=== PATIENT | male | born 1960 | race Caucasian/White ===

== ENCOUNTER → 2021-08-07 | Outpatient (CLI) | payer MEDICAID ==
[~2021-08-07] MED LIST: CARBIDOPA-LEVO1 EAC5; HYDROCODON-ACE1 EAC8; INVOKANA100 MG; LISINOPRIL-HCT1 EAC2; METFORMIN HCL500 M3; ROPINIROLE HCL3 MG; RYTARY ER 23.71 EACH; TOPROL XL25 MG
== END ==
LOC: M.PC 08:51
PROVIDERS: ATTEND Physical Medicine & Rehabilitation
DX: M47.814 Spondylosis without myelopathy or radiculopathy, thoracic region (principal); M25.562 Pain in left knee; M48.02 Spinal stenosis, cervical region; M79.603 Pain in arm, unspecified; Z96.652 Presence of left artificial knee joint